=== PATIENT | male | born 1980 | race Caucasian/White ===

== ENCOUNTER 2018-12-23 11:44 | Emergency (ER) | payer OTHER ==
[~2018-12-23] VITALS: Ht 185.4 cm; Wt 127.0 kg
[2018-12-23] MEDS ORDERED: NEURONTIN 300300 M1 PO (11:58)
[2018-12-23] MEDS ORDERED: METHOTREXATE 22.5 MG PO (12:00)
[2018-12-23 12:02] LABS: ABSOLUTE NEUTROPHILS 4.2 thou/uL (1.4-8.2); EOSINOPHILS 2.1 % (0.0-3.0); HEMATOCRIT 42.5 % (42.0-52.0); HEMOGLOBIN 14.9 gm/dL (14.0-18.0); LYMPHOCYTES 27.6 % (24.0-44.0); MCH 30.7 pg (26.0-34.0); MCHC 35.1 g/dL (28.0-37.0); MCV 87.5 fL (80.0-100.0); MONOCYTES 7.3 % (1.0-8.0); PLATELET COUNT 319 thou/uL (150-400); RBC 4.85 mil/uL (4.50-6.00); RDW 14.1 % (10.5-14.5); WBC 6.7 thou/uL (4.0-11.0)
[2018-12-23 12:10] LABS: ANION GAP 11 mmol/L (7-16); BUN 13 mg/dL (7-18); CALCIUM 9.4 mg/dL (8.5-10.1); CHLORIDE 101 mmol/L (98-107); CO2 24 mmol/L (21-32); CREATININE 1.2 mg/dL (0.7-1.3); GLUCOSE 109 mg/dL (74-106); POTASSIUM 4.1 mmol/L (3.5-5.1); SODIUM 136 mmol/L (136-145)
[2018-12-23 12:20] LABS: ALBUMIN 3.8 g/dL (3.4-5.0); SGOT 30 U/L (15-37); SGPT 57 U/L (30-65); TOTAL BILIRUBIN 0.6 mg/dL (<0.1-1.0); TOTAL PROTEIN 7.6 g/dL (6.4-8.2); TROPONIN-I <0.06 ng/mL (<0.06)
[2018-12-23] MEDS ORDERED: NAPROSYN500 MG PO (14:58)
[2018-12-23 15:01] VITALS: BP 153/93
--- NOTE | 2018-12-24 14:02 | EKG ---
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
== END 2018-12-23 16:05 | disposition home or self-care (01) ==
LOC: ER 11:44
PROVIDERS: Physician Assistant
DX: R07.9 Chest pain, unspecified (principal); Z91.041 Radiographic dye allergy status